=== PATIENT | male | born 1995 | race Caucasian/White ===

== ENCOUNTER 2017-01-08 22:33 | Emergency (ER) | payer BC, OTHER ==
[~2017-01-08] VITALS: Ht 180.3 cm; Wt 65.0 kg
[~2017-01-08 22:33] MED LIST: PANT40TA4 PO
[2017-01-08 22:48] VITALS: Ht 180.3 cm; Wt 65.0 kg
[2017-01-09] MEDS ORDERED: ONDANSETRON 4 MG INJ IV STA (00:33)
[2017-01-09] MEDS ORDERED: HYDROmorphONE 1 MG/ML SYG IV STA ×2 (00:33→01:43)
[2017-01-09] MEDS ORDERED: SOD CHLORIDE 0.9% 1,000 ML IV STA (00:33)
[2017-01-09 00:47] LABS: ADD SCAN DIFF NO
[2017-01-09 00:49] LABS: BASOPHIL # 0.1 10^3/ul (0.0-0.1); BASOPHILS % 0.3 % (0.0-2.0); HEMATOCRIT 40.9 % (42.0-52.0); HEMOGLOBIN 14.4 g/dl (14.0-18.0); LYMPHOCYTES # 2.1 10^3/ul (0.8-2.9); LYMPHOCYTES % 9.5 % (15.0-51.0); MEAN CORPUSCULAR HEMOGLOBIN 28.5 pg (29.0-33.0); MEAN CORPUSCULAR HGB CONC 35.2 g/dl (32.0-37.0); MEAN PLATELET VOLUME 9.3 fl (7.4-10.4); MONOCYTE # 1.2 10^3/ul (0.3-0.9); MONOCYTES % 5.3 % (0.0-11.0); NEUTROPHIL # 18.9 10^3/ul (1.6-7.5); NEUTROPHILS % 84.1 % (39.0-77.0); PLATELET COUNT 330 10^3/UL (140-415); RED BLOOD COUNT 5.05 10^6/ul (4.70-6.10); RED CELL DISTRIBUTION WIDTH 12.8 % (11.5-14.5); WHITE BLOOD COUNT 22.5 10^3/ul (4.8-10.8)
[2017-01-09] MEDS ORDERED: METOCLOPRAMIDE 10 MG INJ IV ONE (01:00)
[2017-01-09 01:05] LABS: BILIRUBIN,INDIRECT 0.9 mg/dl (0-1.1); BILIRUBIN,TOTAL 0.9 mg/dl (0.2-1.3); CALCIUM 10.1 mg/dl (8.4-10.2); CREATININE 0.73 mg/dl (0.61-1.24); POTASSIUM 3.5 mmol/L (3.5-5.1)
[2017-01-09 01:06] LABS: ALBUMIN/GLOBULIN RATIO 1.56; TOTAL PROTEIN 8.2 g/dl (6.1-8.1)
--- NOTE | 2017-01-09 02:22 | RADRPT ---
PROCEDURE: CT Abdomen and pelvis without contrast. CLINICAL INDICATION: Abdominal pain. TECHNIQUE: CT scan of the abdomen and pelvis was performed on a multi-detector high-resolution CT scanner. Contiguous axial images were obtained from the lung bases to the ischial tuberosities wit hout intravenous contrast. Coronal and sagittal reformatted images were also obtained. Images were reviewed on the PACS workstation. One or more of the following dose reduction techniques were used: - Automated exposure control. - Adjustment of the mA and/or kV according to patient size. - Use of iterative reconstruction technique. Exam CTD/vol = 5.74 mGy. Total exam DLP = 347.83 mGy-cm. COMPARISON: 04/02/2014. FINDINGS: Evaluation of the lung bases demonstrates no pleural or parenchymal disease. Abdomen: The liver is normal in size. There is no focal mass or dilatation of the biliary tree. T he gallbladder is not distended. The spleen, pancreas and bilateral adrenal glands are within kaila l limits. Bilateral kidneys are normal in size with no contour deforming mass identified. There is no radiopaque renal or ureteral calculus identified. There is no hydronephrosis or hydroureter. T here is no retroperitoneal adenopathy. The abdominal aorta is of normal caliber. There is no abnormal bowel wall thickening or distension. There is no bowel obstruction or free air . A normal appendix is identified. There is no diverticulosis or diverticulitis. There is no asci jocelynn. Pelvis: The bladder is unremarkable. The prostate and seminal vesicles are within normal limits. There is no significant pelvic adenopathy or free fluid. Evaluation of the osseous structures demonstrates no suspicious lytic or blastic lesion. There are d efects of bilateral pars interarticularis of L5. IMPRESSION: No acute abnormality identified within the abdomen and pelvis. Bilateral pars defects of L5. .Anoop Belle MD, MD Date Time Electronically viewed and signed by .Anoop Belle MD, MD on 01/09/2017 02:21 .T/
[2017-01-09] MEDS ORDERED: ONDA4TAB8 PO (03:12)
[2017-01-09 03:36] VITALS: BP 135/82; PULSE 95; RESP 20; TEMP 99.2
--- NOTE | 2017-01-09 04:18 | ERD ---
ER Documentation Chief Complaint Date/Time DATE: 01/09/17 TIME: 04:02 Chief Complaint abdominal pain for a few days HPI Patient is a 20-year-old male who presents to the ED with abdominal pain, nausea and vomiting for 3 days. Patient has history of IBS, gastritis, hemorrhoids and anxiety. Patient states he has oxycodone but he is unable to take it due to vomiting. Denies any recent history of fever, cough, chest pain , dysuria, constipation and diarrhea. Last bowel movement was this morning. Patient states that he was admitted at [facility] 3 weeks ago due to right lung collapse secondary to trauma. Denies any recent sick contacts or foreign travel. Patient states that he occasionally uses recreational marijuana. ROS All systems reviewed and are negative except as per history of present illness. Medications Home Meds Active Scripts Ondansetron Hcl* (Zofran*) 4 Mg Tablet, 4 MG PO Q6H for NAUSEA AND/OR VOMITING, #30 TAB Prov:SURJIT HORVATH 01/09/17 Reported Medications Pantoprazole* (Pantoprazole*) 40 Mg Tablet.dr, 40 MG PO DAILY, TAB 11/16/14 Allergies Allergies: Coded Allergies: No Known Allergies (Verified Allergy, Mild, 01/08/17) PMhx/Soc History of Surgery: No (DENIES SX; ENDOSCOPY; COLONOSCOPY) Anesthesia Reaction: No Hx Neurological Disorder: No Hx Respiratory Disorders: No Hx Cardiac Disorders: No Hx Psychiatric Problems: No Hx Miscellaneous Medical Probl: Yes (RT LUNG COLLAPSE, GASTRITIS, IBS, ( MULTIPLE GI ISSUES); ) Hx Alcohol Use: No Hx Substance Use: Yes (MARIJUANA) Hx Tobacco Use: Yes (quit smoking ) Smoking Status: Former smoker Physical Exam Vitals Vital Signs Date Time Temp Pulse Resp B/P Pulse Ox O2 Delivery O2 Flow Rate FiO2 01/09/17 03:36 99.2 95 20 135/82 100 Room Air 01/08/17 22:48 99.2 102 20 150/92 99 Physical Exam Physical Exam CONST: Well-developed, well-nourished, patient is screaming prior to examination. HEENT: Atraumatic. Normal conjunctiva. EOM intact. TM intact. External ear is normal. Clear oropharnyx without erythema. No uvular deviation. Moist mucous membranes. Supple neck. No meningismus. No submandibular induration. RESP: Clear to auscultation bilaterally. No wheezing. CARDIO: Regular rate and rhythm, no murmurs. ABD: Diffuse abdominal tenderness, otherwise abdomen is soft and nondistended. Normal bowel sounds. No McBurney's point tenderness. No guarding or rigidity. No peritoneal signs. SKIN: No petechiae or rashes. BACK: No midline or flank tenderness. EXT: No cyanosis or edema. Distal pulses equal and bilateral. NEURO: Awake and alert, appropriate for age. 5/5 strength in all extremities. Normal speech. Steady gait. Result Diagram: 01/09/17 0020 01/09/17 0020 Results 24 hrs Laboratory Tests Test 01/09/17 00:20 White Blood Count 22.510^3/ul Red Blood Count 5.0510^6/ul Hemoglobin 14.4g/dl Hematocrit 40.9% Mean Corpuscular Volume 81.0fl Mean Corpuscular Hemoglobin 28.5pg Mean Corpuscular Hemoglobin Concent 35.2g/dl Red Cell Distribution Width 12.8% Platelet Count 82004^3/UL Mean Platelet Volume 9.3fl Neutrophils % 84.1% Lymphocytes % 9.5% Monocytes % 5.3% Eosinophils % 0.0% Basophils % 0.3% Nucleated Red Blood Cells % 0.0/100WBC Neutrophils # 18.910^3/ul Lymphocytes # 2.110^3/ul Monocytes # 1.210^3/ul Eosinophils # 0.010^3/ul Basophils # 0.110^3/ul Nucleated Red Blood Cells # 0.010^3/ul Sodium Level 140mmol/L Potassium Level 3.5mmol/L Chloride Level 105mmol/L Carbon Dioxide Level 21mmol/L Anion Gap 18 Blood Urea Nitrogen 12mg/dl Creatinine 0.73mg/dl Glucose Level 128mg/dl Calcium Level 10.1mg/dl Total Bilirubin 0.9mg/dl Direct Bilirubin 0.00mg/dl Indirect Bilirubin 0.9mg/dl Aspartate Amino Transf (AST/SGOT) 26IU/L Alanine Aminotransferase (ALT/SGPT) 30IU/L Alkaline Phosphatase 102IU/L Total Protein 8.2g/dl Albumin 5.0g/dl Globulin 3.20g/dl Albumin/Globulin Ratio 1.56 Lipase 71U/L Current Medications Medications (Trade) Dose Ordered Sig/Trice Route PRN Reason Start Time Stop Time Status Last Admin Dose Admin Sodium Chloride (NS) 1,000 ml @ 1,000 mls/hr Q1H STAT IV 01/09/17 00:33 01/09/17 01:32 DC 01/09/17 00:46 Hydromorphone HCl (Dilaudid) 1 mg ONCE STAT IV 01/09/17 00:33 01/09/17 00:36 DC 01/09/17 00:46 Ondansetron HCl (Zofran Inj) 4 mg ONCE STAT IV 01/09/17 00:33 01/09/17 00:41 DC Metoclopramide HCl (Reglan) 10 mg ONCE ONCE IV 01/09/17 01:00 01/09/17 01:01 DC Hydromorphone HCl (Dilaudid) 1 mg ONCE STAT IV 01/09/17 01:43 01/09/17 01:45 DC 01/09/17 02:01 PROCEDURE: CT Abdomen and pelvis without contrast. CLINICAL INDICATION: Abdominal pain. TECHNIQUE: CT scan of the abdomen and pelvis was performed on a multi- detector high-resolution CT scanner. Contiguous axial images were obtained from the lung bases to the ischial tuberosities without intravenous contrast. Coronal and sagittal reformatted images were also obtained. Images were reviewed on the PACS workstation. One or more of the following dose reduction techniques were used: - Automated exposure control. - Adjustment of the mA and/or kV according to patient size. - Use of iterative reconstruction technique. Exam CTD/vol = 5.74 mGy. Total exam DLP = 347.83 mGy-cm. COMPARISON: 04/02/2014. FINDINGS: Evaluation of the lung bases demonstrates no pleural or parenchymal disease. Abdomen: The liver is normal in size. There is no focal mass or dilatation of the biliary tree. The gallbladder is not distended. The spleen, pancreas and bilateral adrenal glands are within normal limits. Bilateral kidneys are normal in size with no contour deforming mass identified. There is no radiopaque renal or ureteral calculus identified. There is no hydronephrosis or hydroureter. There is no retroperitoneal adenopathy. The abdominal aorta is of normal caliber. There is no abnormal bowel wall thickening or distension. There is no bowel obstruction or free air. A normal appendix is identified. There is no diverticulosis or diverticulitis. There is no ascites. Pelvis: The bladder is unremarkable. The prostate and seminal vesicles are within normal limits. There is no significant pelvic adenopathy or free fluid. Evaluation of the osseous structures demonstrates no suspicious lytic or blastic lesion. There are defects of bilateral pars interarticularis of L5. IMPRESSION: No acute abnormality identified within the abdomen and pelvis. Bilateral pars defects of L5. .Anoop Belle MD, Date Time Electronically viewed and signed by .Anoop Belle MD, on 01/09/2017 02:21 Procedures/[facility] EMERGENCY DEPARTMENT COURSE/MEDICAL DECISION MAKING This is a 21-year-old male who comes to the emergency room secondary to complaints of abdominal pain, nausea and vomiting for 3 days. The patient was given 1 L NS IVF, Zofran IV and 1 mg Dilaudid IV in the department. Patient states that the Dilaudid did not help that much, so another 1 mg Dilaudid IV was ordered. CBC, CMP and lipase were ordered. WBC is 22.5 and neutrophils is 84.1% Due to his diffuse abdominal pain, I have ordered a CT of the abdomen and pelvis. Results are unremarkable per radiologist. I have reviewed his CURES database and patient has received 7 narcotic prescriptions for this year. Patient appears to have his drug-seeking behavior. Patient is screaming in pain but looks comfortable when he is distracted. My primary diagnosis is abdominal pain. Secondary diagnosis is nausea and vomiting Differential diagnoses considered but not limited to acute appendicitis, diverticulitis, pancreatitis, cholecystitis, gastritis, pyelonephritis, UTI, constipation, inflammatory bowel disease, ectopic , ovarian torsion.. Pt is hemodynamically stable upon reassessment. Patient is requesting for a third dose of Dilaudid IV but I refused because patient appears comfortable. The patient was discharged for outpatient management with a prescription for Zofran. Patient instructed to use his current medication of oxycodone for pain management. The patient was advised to followup with their PMD in 1-2 days request for a referral for a sheet music salesperson to perform an EGD. Patient was also instructed to return to the Emergency Department if there are any new or worsening symptoms. The patient understood and agreed with the diagnosis, treatment and plan. Patient is stable for discharge at this time. Departure Diagnosis: Primary Impression: Abdominal pain Abdominal location: unspecified location Qualified Code: R10.9 - Abdominal pain, unspecified location Additional Impression: Nausea and vomiting Vomiting type: unspecified Vomiting Intractability: intractable Qualified Code: R11.2 - Intractable vomiting with nausea, unspecified vomiting type Condition: Stable Patient Instructions: Abdominal Pain, Nausea and Vomiting-Adult Additional Instructions: Call your primary care doctor tomorrow for an appointment during the next 1-2 days. Return to the emergency department immediately should you have any new or worsening symptoms. Take all medications as directed. SURJIT HORVATH Jan 09, 2017 04:18
== END 2017-01-09 03:36 | disposition home or self-care (01) ==
LOC: FTE 22:33
DX: R10.84 Generalized abdominal pain (principal); R11.2 Nausea with vomiting, unspecified; Z87.891 Personal history of nicotine dependence
CPT/HCPCS: 74176; 80053; 83690; 85025; J1170; J7030; 36415; 96374; 96376